=== PATIENT | male | born 1975 | race Two or more races ===

== ENCOUNTER 2018-09-26 19:39 | Emergency (ER) | payer MEDICAID ==
[~2018-09-26] VITALS: Ht 160 cm; Wt 49.9 kg
--- NOTE | 2018-09-26 19:46 | NUR ---
ED Nurse Note: Patient presents with complaints of leg weakness with pain in the legs and the arms.
[2018-09-26 19:56] VITALS: BP 104/68
[2018-09-26 20:03] LABS: BASOPHILS % (AUTO) 0.8 % (0.0-2.0); EOSINOPHILS % (AUTO) 7.5 % (0.0-3.0); HEMATOCRIT 40.6 % (37.0-47.0); HEMOGLOBIN 14.3 G/DL (12.0-16.0); LYMPHOCYTES % (AUTO) 25.4 % (20.0-45.0); MEAN CORPUSCULAR VOLUME 94 FL (80-99); MONOCYTES % (AUTO) 7.7 % (1.0-10.0); NEUTROPHILS % (AUTO) 58.6 % (45.0-75.0); PLATELET COUNT 187 K/UL (150-450); RED BLOOD COUNT 4.33 M/UL (4.20-5.40); RED CELL DISTRIBUTION WIDTH 10.8 % (11.6-14.8); WHITE BLOOD COUNT 6.4 K/UL (4.8-10.8)
--- NOTE | 2018-09-26 20:14 | Emergency Room Report ---
History of Present Illness General Chief Complaint: Generalized Weakness Source: Patient Present Illness HPI 43-year-old male, presents with generalized weakness, and his lower extremities , patient was seen at [facility], discharged today, patient presents for for a second opinion, patient denies any chest pain shortness of breath he states he feels very weak in his legs, denies any nausea vomiting, abdominal pain, he denies any preceding sickness prior to feeling weak, he states the symptoms have been going on for 2 weeks no aggravating or alleviating factors, patient presents today for evaluation Allergies: Coded Allergies: No Known Allergies (Unverified , 09/26/18) Patient History Past Medical History: see triage record Reviewed Nursing Documentation: PMH: Agreed; PSxH: Agreed Nursing Documentation-PMH Past Medical History: No Stated History Review of Systems Constitutional: Reports: weakness; Denies: chills, fever Eye: Denies: blurred vision, double vision ENT: Denies: throat pain, nasal discharge Respiratory: Denies: cough, shortness of breath Cardiovascular: Denies: chest pain, palpitations Gastrointestinal: Denies: abdominal pain, diarrhea, nausea, vomiting Genitourinary: Denies: pain Musculoskeletal: Denies: back pain, muscle pain Skin: Denies: rash, lesions Neurological: Denies: headache, focal weakness Hematologic/Lymphatic: Denies: easy bleeding, easy bruising All Other Systems: negative except mentioned in HPI Physical Exam Vital Signs Date Time Temp Pulse Resp B/P (MAP) Pulse Ox O2 Delivery O2 Flow Rate FiO2 09/26/18 19:36 98.2 80 18 104/68 (80) 100 Room Air Sp02 EP Interpretation: reviewed, normal General Appearance: well appearing, no apparent distress, alert Head: normocephalic, atraumatic Eyes: bilateral eye PERRL, bilateral eye EOMI ENT: uvula midline, moist mucus membranes Neck: supple, thyroid normal, supple/symm/no masses Respiratory: lungs clear, no respiratory distress, no retraction, no accessory muscle use Cardiovascular #1: normal peripheral pulses, regular rate, rhythm, no edema, no gallop, no murmur Gastrointestinal: non tender, soft, no guarding, no rebound Musculoskeletal: normal inspection Neurologic: alert, oriented x3, 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, other - 5 out of 5 strength bilateral lower extremities, patient is able to ambulate, no objective weakness determined, plantar dorsiflexion of the foot, flexion extension of the knee, abduction abduction of the hips, normal, extension flexion of the hips normal 5 out of 5 strength Psychiatric: mood/affect normal Skin: no rash, warm/dry Medical Decision Making Diagnostic Impression: Primary Impression: Episode of generalized weakness ER Course Patient presents with lower extremely weakness, neurovascular exam is completely intact, patient is able to ambulate, he has subjective feelings of weakness, no objective findings, patient was recently discharged from [facility] ddx diagnosis: ACS, electrolyte imbalance Patient with a normal neurologic exam, joint decision-making was made with the patient, patient was informed of his lab results, patient states he wants to go home, patient was offered admission, however patient states he will return if he worsens. He was observed going to the bathroom without any issues, return precautions were discussed, patient was counseled to keep his cell phone at bedside and if he worsens to return to the emergency room EKG Diagnostic Results EKG Time: 20:00 EP Interpretation: Normal sinus rhythm, rate 67, QTc 441, no acute ST elevations, normal axis Rate: normal Rhythm: NSR ST Segments: no acute changes Rhythm Strip Diag. Results Rhythm Strip Time: 21:21 EP Interpretation: yes Rate: 60 Rhythm: NSR, no PVC's, no ectopy Chest X-Ray Diagnostic Results Chest X-Ray Diagnostic Results : Chest X-Ray Ordered: Yes # of Views/Limited/Complete: 1 View Indication: Other - Weakness EP Interpretation: Yes Interpretation: no consolidation, no effusion, no pneumothorax, no acute cardiopulmonary disease Impression: No acute disease Electronically Signed by: Dangelo Vega MD Last Vital Signs Date Time Temp Pulse Resp B/P (MAP) Pulse Ox O2 Delivery O2 Flow Rate FiO2 09/26/18 19:56 98.2 78 18 104/68 100 Room Air Disposition: HOME, SELF-CARE Condition: Improved Patient Instructions: Weakness Additional Instructions: The patient was provided with discharge instructions, notified to follow-up with a primary care doctor and or specialist in the next 24-48 hours, and to return to the ED if they have worsening of their symptoms. Please note that this report is being documented using [employer] technology. This can lead to erroneous entry secondary to incorrect interpretation by the dictating instrument. Dangelo Vega M.D. Sep 26, 2018 20:14
[2018-09-26 20:25] LABS: ANION GAP 11 mmol/L (5-15); BLOOD UREA NITROGEN 17 mg/dL (7-18); CARBON DIOXIDE 26 MMOL/L (21-32); CHLORIDE 105 MMOL/L (98-107); CREATININE 0.8 MG/DL (0.55-1.30); POTASSIUM 3.6 MMOL/L (3.5-5.1); SODIUM 141 MMOL/L (136-145)
[2018-09-26 20:35] LABS: ALANINE AMINOTRANSFERASE 24 U/L (12-78); ALBUMIN/GLOBULIN RATIO 1.4 (1.0-2.7); ALKALINE PHOSPHATASE 64 U/L (46-116); ASPARTATE AMINO TRANSFERASE 19 U/L (15-37); BILIRUBIN,TOTAL 1.8 MG/DL (0.2-1.0); CREATINE KINASE 257 U/L (26-308)
[2018-09-26 20:36] LABS: BILIRUBIN,DIRECT 0.3 MG/DL (0.0-0.3)
--- NOTE | 2018-09-26 20:56 | NUR ---
ED Nurse Note: Patient is sleeping soundly. Patient urged to provide urine sample at this time.
[2018-09-26 21:42] LABS: APPEARANCE,URINE CLEAR; BILIRUBIN, URINE NEGATIVE (NEGATIVE); COLOR,URINE PALE YELLOW; GLUCOSE, URINE (UA) NEGATIVE (NEGATIVE); KETONES,URINE NEGATIVE (NEGATIVE); LEUKOCYTE ESTERASE ,URINE NEGATIVE (NEGATIVE); NITRITE,URINE NEGATIVE (NEGATIVE); PH,URINE 5 (4.5-8.0); PROTEIN,URINE NEGATIVE (NEGATIVE); UROBILINOGEN,URINE NORMAL MG/DL (0.0-1.0)
--- NOTE | 2018-09-26 22:18 | NUR ---
ED Nurse Note: Patient cleared for discharge, ID band removed. IV removed . Patient verbalized understanding of discharge instructions. Patient escorted to depature desk prior to departing.
[2018-09-26 22:25] VITALS: BP 104/68
--- NOTE | 2018-09-27 14:30 | Diagnostic Imaging Report ---
Indication: Dyspnea Comparison: None A single view chest radiograph was obtained. Findings: Cardiomediastinal appearance is within normal limits for age. The lungs are clear. Pulmonary vascularity is appropriate. The diaphragmatic contour is smooth and costophrenic angles are sharp. No pleural effusions are identified. The bones are unremarkable. Impression: No acute findings
== END 2018-09-26 22:26 | disposition home or self-care (01) ==
LOC: EDBD 19:39 → EDSEX 19:39 → EMR 20:10
DX: R53.1 Weakness (principal)
CPT/HCPCS: 36415; 71045; 80053; 81003; 82248; 82550; 83690; 84484; 85025; 96360; 99284